=== PATIENT | male | born 2000 | race Caucasian/White ===

== ENCOUNTER 2020-08-16 10:13 | Emergency (ER) | payer OTHER ==
--- OUTSIDE RECORDS SUMMARY | 2020-08-16 10:20 | XMS REPORT | Continuity of Care Document ---
:2000 Author Organization [facility] t Address [address] [place] [place] [address] Care Team Providers Name Role Phone Pcp, Does Not Have A Primary Care Physician Richard Bro ZAPATA Attending Clinician Prakash CABANA ATTENDANT Attending Clinician Payers Payer Name Policy Type Policy Effective Date Expiration Date Sour ce Number CIGNACIGNA [id number] [id number] dical /2020-PresentO Branch /PPO/POS Problems This patient has no known problems. Allergies, Adverse Reactions, Alerts This patient has no known allergies or adverse reactions. Social History Social Habit Start Date Stop Date Quantity Comments Source Exposure to Not sure [facility] SARS-CoV-2 (event) Medica l Branch Tobacco use and 2020-06-09 2020-06-09 Never used [facility] exposure 00:00:00 00:00:00 [facility] Sex Assigned At [birth year] [facility] 00:00:00 00:00:00 [facility] Smoking Status Start Date Stop Date Source Current some day smoker 2020-06-09 00:00:00 [facility] Medications Ordered Filled Start Stop Current Ordering Indication Dosage Frequency Signature Comments Components Source Medication Medication Date Date Medication? Clinician (SIG) Name Name cephALEXin 2020- Yes Cystitis 500mg Take 1 Univers 500 mg 06-09 capsule by ity of capsule 00:00: 04:59 mouth 2 [place] 00 :00 (two) Medical times Branch daily for 7 days. Vital Signs Vital Name Observation Time Observation Value Comments Source Systolic blood 2020-06-09 23:22:00 111 mm[Hg] Univer sity of pressure [facility] Diastolic blood 2020-06-09 23:22:00 60 mm[Hg] Unive rsity of [facility] Heart rate 2020-06-09 23:22:00 71 /min Universi ty of [facility] Body temperature 2020-06-09 23:22:00 36.94 Lidya Univ ersity of [facility] Respiratory rate 2020-06-09 23:22:00 16 /min Univ ersity of [facility] Body height 2020-06-09 23:22:00 180.3 cm Universi ty of [facility] Body weight 2020-06-09 23:22:00 79.379 kg Universi ty of [facility] BMI 2020-06-09 23:22:00 24.41 kg/m2 Universi ty of [place] [facility] Oxygen saturation in 2020-06-09 23:22:00 97 /min University of Arterial blood by [facility] Pulse oximetry Branch Systolic blood 2020-06-09 23:22:00 111 mm[Hg] Univer sity of [facility] Diastolic blood 2020-06-09 23:22:00 60 mm[Hg] Unive rsity of [facility] Heart rate 2020-06-09 23:22:00 71 /min [facility]i ty [facility] [place] [facility] [place] Body temperature 2020-06-09 23:22:00 36.94 [facility] rate 2020-06-09 23:22:00 16 /min Univ ersity of [facility] Body height 2020-06-09 23:22:00 180.3 cm [facility] [place] [facility] Body weight 2020-06-09 23:22:00 79.379 kg [facility] [place] [facility] BMI 2020-06-09 23:22:00 24.41 kg/m2 [facility] [place] [facility] Oxygen saturation in 2020-06-09 23:22:00 97 /min University of Arterial blood by [facility] Pulse oximetry Branch Procedures Procedure Date / Time Performing Clinician Source Performed URINALYSIS MICROSCOPIC 2020-06-09 23:54:00 Yolette Rmaos iversity of [facility] POCT URINALYSIS 2020-06-09 23:28:00 Jeremias Reese o f [facility] Plan of Care Planned Activity Planned Date Details Comments Source Future Scheduled 2020-10-06 INFLUENZA VACCINE Univer sity of Test 00:00:00 (Season Ended) [code [place] [facility] edical = INFLUENZA VACCINE Branch (Season Ended)] Diagnostic Test 2020-06-09 GC & CHLAMYDIA Expected: [facility] 00:00:00 AMPLIFIED ASSAY 06/09/2020, [place] [facility] l [code = 89094-0] Expires: Branch 06/09/2021 Future Scheduled 2018-12-28 DTaP,Tdap,and Td Univers ity of Test 00:00:00 Vaccines (1 - Tdap) [place] [facility] dical [code = Branch DTaP,Tdap,and Td Vaccines (1 - Tdap)] Future Scheduled 2017-12-28 Hepatitis C University of Test 00:00:00 screening [place] [facility] (procedure) [code = Branch [id number]] Future Scheduled 2015 SARS-CoV-2 University of Test 00:00:00 (COVID-19) Vaccine [place] [facility] ical (1) [code = Branch SARS-CoV-2 (COVID-19) Vaccine (1)] Future Scheduled 2011 Depression screening Uni versity of Test 00:00:00 (procedure) [code = [place] [facility] dical 742608197] Branch Future Scheduled 2011 Well child visit Univers ity of Test 00:00:00 (procedure) [code = [place] [facility] [id number]] Branch Future Scheduled 2010-12-28 HPV VACCINES (1 - Univer sity of Test 00:00:00 Male 2-dose series) [place] [facility] dical [code = HPV VACCINES Branch (1 - Male 2-dose series)] Future Scheduled 2009-12-28 MENINGOCOCCAL B Universi ty of Test 00:00:00 VACCINES (1 of 2 - [place] [facility] ical Risk Bexsero 2-dose Branch series) [code = MENINGOCOCCAL B VACCINES (1 of 2 - Risk Bexsero 2-dose series)] Future Scheduled 2005-12-28 PNEUMOCOCCAL 0-64 Univer sity of Test 00:00:00 YEARS COMBINED [place] [facility] SERIES (1 of 1 - Branch PPSV23) [code = PNEUMOCOCCAL 0-64 YEARS COMBINED SERIES (1 of 1 - PPSV23)] Future Scheduled 2000-12-28 VARICELLA VACCINES Unive rsity of Test 00:00:00 (1 of 2 - 2-dose [place] [facility] al childhood series) Branch [code = VARICELLA VACCINES (1 of 2 - 2-dose childhood series)] Future Scheduled GC & CHLAMYDIA Universit y of Test AMPLIFIED ASSAY [place] [facility]ica l [code = 62848-6] Branch Future Scheduled URINE CULTURE [code Univ ersity of Test = 630-4] [facility] Encounters Start End Encounter Admission Attending Care Care Encounter Source Date/Time Date/Time Type Type Clinicians Facility Department ID 2020-06-09 2020-06-[address] [facility] [id number] 50 18:16:21 18:51:55 Care [facility] [id number] [place] [id number] Professio [id number] nal [address] One Results Test Description Test Time Test Comments Results Result Comments Source URINALYSIS MICROSCOPIC 2020-06-10 02:37:06 Test Item Value Reference Range Interpretation Comme nts RBC/HPF (test code = 0 See_Comment [Autom ated message] The system [id number]) which generated this result transmitted ref erence range: 0 - 3 HPF. The re ference range was not used to interpret this result as aleja l/abnormal. WBC/HPF (test code = 1 See_Comment [Autom ated message] The system [id number]) which generated this result transmitted ref erence range: 0 - 5 HPF. The re ference range was not used to interpret this result as aleja l/abnormal. BACTERIA (test code = Negative Negative [id number]) SQ EPITH (test code = <1 HPF [id number]) MUCOUS (test code = Slight Negative LPF A [id number]) Lab Interpretation (test code Abnormal = 97686-8) [facility] [id number] 23:29:00 Test Item Value Reference Range Interpretation Comments POCT U SP GRAV (test 1.025 mg/dl 1.005-1.025 code = 3255) POCT PH U (test code = 5 mg/dl 5-8 3254) POCT U LEUK EST (test trace Negative - code = 3263) Negative POCT U NIT (test code negative Negative - = 3262) Negative POCT U PROT (test code negative Negative - = 3259) Negative POCT U GLU (test code negative Negative - = 3256) Negative POCT U KETONE (test small Negative - code = 3258) Negative POCT U UROBILI (test normal 0.2-1 code = 3260) POCT U BILI (test code negative Negative - = 3261) Negative POCT U BLD (test code trace Negative - = 3257) Negative POCT U COLOR (test yellow code = 3266) POCT U APPEAR (test clear code = 3267) MARKOS (test code = MARKOS) accurate development and interpretation of all internal controls Lab Interpretation Abnormal (test code = 08086-3) [facility]
[2020-08-16 10:56] LABS: Absolute Lymphocytes (CBC) 1.8 K/uL (0.7-4.9); Basophils % 0.9 % (0-1.3); Hematocrit 46.4 % (39.6-49.0); Lymphocytes % 36.4 % (15.3-44.8); MPV 9.4 fL (7.6-11.3); RBC Red Blood Cell Count 5.49 M/uL (4.33-5.43)
--- NOTE | 2020-08-16 11:20 | RAD REPORT ---
EXAM DESCRIPTION: RAD - Chest Single View - 08/16/2020 10:54 am CLINICAL HISTORY: CHEST PAIN Chest pain. COMPARISON: No comparisons FINDINGS: Portable technique limits examination quality. The lungs are grossly clear. The heart is normal in size. No displaced fractures. IMPRESSION: No acute intrathoracic process suspected.
--- NOTE | 2020-08-16 11:20 | RAD REPORT ---
EXAM DESCRIPTION: CT - Chest For Pe Angio - 08/16/2020 11:00 am CLINICAL HISTORY: Chest pain. left chest pain, recent J J vaccine COMPARISON: Chest Single View dated 08/16/2020 TECHNIQUE: CT angiogram of the pulmonary arteries was performed with MIP. All CT scans are performed using dose optimization technique as appropriate and may include automated exposure control or mA/KV adjustment according to patient size. FINDINGS: No evidence of pulmonary thromboembolism. No acute aortic finding demonstrated. The lungs are clear. No significant pericardial or pleural fluid. No concerning bony finding. IMPRESSION: No evidence of pulmonary thromboembolism. No acute lung findings.
[2020-08-16 11:27] LABS: BUN Blood Urea Nitrogen 15 mg/dL (7-18); Bicarbonate 28 mmol/L (21-32); Glucose Level 89 mg/dL (74-106); Sodium Level 140 mmol/L (136-145); Troponin (Emerg Dept Use Only) < 0.02 ng/mL (0.0-0.045)
--- NOTE | 2020-08-16 11:51 | ER ---
Nurse's Notes [facility] Name: Lawrence Pelaez Age: 19 yrs Sex: Male : 2000 Arrival Date: 08/16/2020 Time: 10:19 Bed 13 Private MD: Diagnosis: Chest pain, unspecified;Shortness of breath;Gastro-esophageal reflux disease without esophagitis Presentation: 08/16 10:24 Chief complaint: Patient states: Had the Eulogio and Eulogio Covid Vaccine Sunday. ca1 Yesterday night, started having SOB. Today chest pain started around 0800. Denies HX of Asthma. Coronavirus screen: Client denies travel out of the [place] in the last 14 days. shortness of breath, Client presents with at least one sign or symptom that may indicate coronavirus-19. Standard/surgical mask placed on the client. Provider contacted for isolation considerations. Ebola Screen: Patient negative for fever greater than or equal to 101.5 degrees Fahrenheit, and additional compatible Ebola Virus Disease symptoms Patient denies exposure to infectious person. Patient denies travel to an Ebola-affected area in the 21 days before illness onset. No symptoms or risks identified at this time. Initial Sepsis Screen: Does the patient meet any 2 criteria? No. Patient's initial sepsis screen is negative. Does the patient have a suspected source of infection? No. Patient's initial sepsis screen is negative. Risk Assessment: Do you want to hurt yourself or someone else? Patient reports no desire to harm self or others. Onset of symptoms was August 15, 2020. 10:24 Method Of Arrival: Ambulatory ca1 10:24 Acuity: [place] 3 ca1 Historical: - Allergies: 10:26 No Known Allergies; ca1 - Home Meds: 10:26 None [Active]; ca1 - PMHx: 10:27 Anxiety; ca1 - PSHx: 10:26 None; ca1 - Immunization history:: Client reports receiving the 1st dose of the Covid vaccine, August 13, 2020 [employer]. - Social history:: Smoking status: Patient denies any tobacco usage or history of. - Family history:: not pertinent. - Hospitalizations: : No recent hospitalization is reported. Vital Signs: 10:24 BP 122 / 85; Pulse 62; Resp 18 S; Temp 97.7(TE); Pulse Ox 100% on R/A; Weight 81.65 kg ca1 (R); Height 5 ft. 11 in. (180.34 cm) (R); Pain 7/10; 10:24 Body Mass Index 25.10 (81.65 kg, 180.34 cm) ca1 ED Course: 10:19 Patient arrived in ED. mr 10:26 Triage completed. ca1 10:26 Arm band placed on right wrist. ca1 10:27 Neel Gresham MD is Attending Physician. rn 10:55 XRAY Chest (1 view) In Process Unspecified. EDMS 11:00 CT Chest For PE Angio In Process Unspecified. EDMS 11:00 Aida Conway, JEROME is Primary Nurse. tr6 11:01 Inserted saline lock: 18 gauge in right antecubital area, using aseptic technique. tr6 Blood collected. Administered Medications: 11:41 Drug: GI Cocktail without - (Maalox Suspension 30 ml, Lidocaine Liquid 2 % 15 tr6 ml) Route: PO; Outcome: 11:51 Discharge ordered by . rn 12:36 Patient left the ED. tr6 Signatures: Dispatcher [employer] Celina Arreaga mr Neel Gresham MD MD rn Acob, Rere RN RN ca1 Aida Conway, JEROME RN tr6 Corrections: (The following items were deleted from the chart) 10:27 10:26 PMHx: None; [facility] ca1
--- NOTE | 2020-08-16 11:51 | EDPHYS ---
Physician Documentation [facility] Name: Lawrence Pelaez Age: 19 yrs Sex: Male : 2000 Arrival Date: 08/16/2020 Time: 10:19 Bed 13 Private MD: ED Physician Neel Gresham HPI: 08/16 10:47 This 19 yrs old Male presents to ER via Ambulatory with complaints of rn Breathing Difficulty. 10:47 The patient or guardian reports chest pain that is located primarily in the anterior rn aspect of left upper chest. The pain radiates to Associated signs and symptoms: Pertinent positives: diaphoresis, shortness of breath, Pertinent negatives: abdominal pain, lower extremity swelling, near syncope, palpitations, syncope, vomiting. The chest pain is described as dull. Duration: The patient or guardian reports multiple episodes, that are intermittent. Modifying factors: The symptoms are alleviated by nothing. the symptoms are aggravated by deep breath. Severity of pain: At its worst the pain was mild in the emergency department the pain is unchanged. The patient has not experienced similar symptoms in the past. The patient has not recently seen a physician. Reports left sided chest pain, feels uneasy, assoc with sob. No fever. + chills. Reports just got J\\T\\J vaccine 3 days ago, no trauma. No hx of cardiac or lung problems. No drug use. Also has hx of acid reflux and had "a feast last night". Reports radiates into throat. No rash, no swelling.. Historical: - Allergies: 10:26 No Known Allergies; ca1 - Home Meds: 10:26 None [Active]; ca1 - PMHx: 10:27 Anxiety; ca1 - PSHx: 10:26 None; ca1 - Immunization history:: Client reports receiving the 1st dose of the Covid vaccine, August 13, 2020 [place]. - Social history:: Smoking status: Patient denies any tobacco usage or history of. - Family history:: not pertinent. - Hospitalizations: : No recent hospitalization is reported. ROS: 10:47 Constitutional: Negative for fever, and weight loss, Eyes: Negative for injury, pain, rn redness, and discharge, ENT: Negative for injury, pain, and discharge, Neck: Negative for injury, and swelling, Cardiovascular: Negative for palpitations, and edema, Respiratory: Negative for cough, wheezing, and pleuritic chest pain, Abdomen/GI: Negative for abdominal pain, nausea, vomiting, diarrhea, and constipation, Back: Negative for injury and pain, : Negative for injury, bleeding, discharge, and swelling, MS/Extremity: Negative for injury and deformity, Skin: Negative for injury, rash, and discoloration, Neuro: Negative for headache, weakness, numbness, tingling, and seizure. 10:51 All other systems are negative. rn Exam: 10:47 Constitutional: This is a well developed, well nourished patient who is awake, alert, rn no acute distress, seems anxious. Head/Face: Normocephalic, atraumatic. Eyes: Periorbital areas with no swelling, redness, or edema. ENT: No oral swelling or stridor Neck: Trachea midline, no masses palpated, and no cervical lymphadenopathy. Supple, full range of motion without nuchal rigidity, or vertebral point tenderness. No Meningismus. Cardiovascular: Regular rate and rhythm. No pulse deficits. Respiratory: No increased work of breathing, no retractions or nasal flaring. Abdomen/GI: soft, non-tender Skin: Warm, dry MS/ Extremity: Pulses equal, no cyanosis. Neurovascular intact. Full, normal range of motion. Equal circumference. Neuro: Awake and alert, GCS 15 11:48 ECG was reviewed by the Attending Physician. rn Vital Signs: 10:24 BP 122 / 85; Pulse 62; Resp 18 S; Temp 97.7(TE); Pulse Ox 100% on R/A; Weight 81.65 kg ca1 (R); Height 5 ft. 11 in. (180.34 cm) (R); Pain 7/10; 10:24 Body Mass Index 25.10 (81.65 kg, 180.34 cm) ca1 MDM: 10:27 Patient medically screened. rn 11:48 Differential diagnosis: acute pericarditis, anxiety, coronary artery disease rn costochondritis, esophagitis, gastritis, gastroesophageal reflux disease (GERD), pleurisy, pneumothorax, pulmonary embolus. Data reviewed: vital signs, nurses notes, lab test result(s), EKG, radiologic studies, CT scan, plain films, and as a result, I will discharge patient. Counseling: I had a detailed discussion with the patient and/or guardian regarding: the historical points, exam findings, and any diagnostic results supporting the discharge/admit diagnosis, lab results, radiology results, the need for outpatient follow up, to return to the emergency department if symptoms worsen or persist or if there are any questions or concerns that arise at home. Response to treatment: the patient's symptoms have mildly improved after treatment, and as a result, I will discharge patient. Special discussion: Based on the patient's history, exam, and Dx evaluation, there is no indication for emergent intervention or inpatient Tx. It is understood by the patient/guardian that if the Sx's persist or worsen they need to return immediately for re-evaluation. I discussed with the patient/guardian in detail that at this point there is no indication for admission to the hospital. It is understood, however, that if the symptoms persist or worsen the patient needs to return immediately for re-evaluation. ED course: No acute findings on blood/CXR/CT PE, will dc home with return precautions and some days off. Likely combination of vaccine reaction without PE or pericarditis, GERD, and anxiety.. 08/16 10:37 Order name: Basic Metabolic Panel; Complete Time: : rn 08/16 10:37 Order name: CBC with Diff; Complete Time: 11: rn 08/16 10:37 Order name: Troponin (emerg Dept Use Only); Complete Time: rn 08/16 10:37 Order name: XRAY Chest (1 view); Complete Time: : rn 08/16 10:37 Order name: CT Chest For PE Angio; Complete Time: : rn 08/16 11:14 Order name: CREATININE WHOLE BLOOD; Complete Time: 11:15 EDOH 08/16 10:37 Order name: EKG; Complete Time: 10:37 rn 08/16 10:37 Order name: Cardiac monitoring; Complete Time: 11:58 rn 08/16 10:37 Order name: EKG - Nurse/Tech; Complete Time: :58 rn 08/16 10:37 Order name: IV Saline Lock; Complete Time: : rn 08/16 10:37 Order name: Labs collected and sent; Complete Time: 11:00 rn 08/16 10:37 Order name: O2 Per Protocol; Complete Time: 11:08/16 10:37 Order name: O2 Sat Monitoring; Complete Time: 11:00 rn EC:48 Rate is 58 beats/min. Rhythm is regular. QRS [place] is Normal. NV interval is normal. QRS rn interval is normal. QT interval is normal. No Q waves. T waves are Normal. No ST changes noted. Clinical impression: Sinus bradycardia. Interpreted by me. Reviewed by me. Administered Medications: 11:41 Drug: GI Cocktail without - (Maalox Suspension 30 ml, Lidocaine Liquid 2 % 15 tr6 ml) Route: PO; Disposition Summary: 08/16/20 11:51 Discharge Ordered Location: Home rn Problem: new rn Symptoms: have improved rn Condition: Stable rn Diagnosis - Chest pain, unspecified rn - Shortness of breath rn - Gastro-esophageal reflux disease without esophagitis rn Followup: rn - With: Private Physician - When: As needed - Reason: Recheck today's complaints, Re-evaluation by your physician Discharge Instructions: - Discharge Summary Sheet rn - Nonspecific Chest Pain, Adult rn - Gastroesophageal Reflux Disease, Adult rn - Pain Without a Known Cause rn Forms: - Medication Reconciliation Form rn - Thank You Letter rn - Antibiotic product managent intern - Prescription Opioid Use rn - Work release form eb Signatures: Dispatcher [employer] EDMS Neel Gresham MD MD rn AcobRere RN RN ca1 Aida Conway RN RN tr6 Corrections: (The following items were deleted from the chart) 10:27 10:26 PMHx: None; ca1 ca1
[2020-08-16] MEDS ORDERED: MAGNES/ALUMIN/SIMET 30ML UCUP ONE (12:01)
[2020-08-16] MEDS ORDERED: LIDOCAINE VISCOUS 2% SOLN 15 ML UDC ONE (12:02)
[2020-08-16 12:41] VITALS: BP 122/85; TEMP 97.7; O2SAT 100
--- NOTE | 2020-08-16 16:04 | EKG ---
Test Date: 2020-08-16 Test Time: 11:47:28 Metrology Specialist: TTR MEASUREMENT RESULTS: Intervals: Rate: 58 NJ: 190 QRSD: 100 QT: 402 QTc: 394 [place]: P: 56 NJ: 190 QRS: 70 T: 58 INTERPRETIVE STATEMENTS: Sinus bradycardia with sinus arrhythmia Possible Lateral infarct, age undetermined Abnormal ECG No previous ECG available for comparison Electronically Signed On 08-16-20 16:03:31 CDT by Ari Flor
== END 2020-08-16 12:36 | disposition home or self-care (01) ==
LOC: ER 10:13
DX: K21.9 Gastro-esophageal reflux disease without esophagitis (principal); R06.02 Shortness of breath
CPT/HCPCS: 93005; 85025; 80048; 36415; 82565; 84484; 71275; 71045; 99284; Q9967

== ENCOUNTER 2021-09-15 15:41 | Emergency (ER) | payer OTHER ==
--- OUTSIDE RECORDS SUMMARY | 2021-09-15 16:00 | XMS REPORT | Continuity of Care Document ---
:2000 Author Organization [facility] t Address [facility] [place] [place] [address] Care Team Providers Name Role Phone PCP, PATIENT DOES NOT HAVE A Primary Care Physician Unavaila lc Nurse, Adi [facility] Attending Clinician Unavailable Kristina Lilly Attending Clinician KRISTINA ORYAL Attending Clinician Unavailable Yolette Jimenez Attending Clinician Jacqui Duke Attending Clinician JACQUI PEGUERO Attending Clinician Unavailable Payers Payer Name Policy Type Policy Number Effective Date Expiration Date S ource Problems Condition Condition Condition Status Onset Resolution Last Treating Co mments Source Name Details Category Date Date Treatment Clinician Date No known No known Disease Unive rs active active ity of problems problems [facility] Allergies, Adverse Reactions, Alerts Allergy Allergy Status Severity Reaction(s) Onset Inactive Treating Comm ents Source Name Type Date Date Clinician NO KNOWN Drug Active Univers ALLERGIE Class ity of [facility] Social History Social Habit Start Date Stop Date Quantity Comments Source Exposure to 2021-07-05 2021-07-15 Not sure [facility] SARS-CoV-2 (event) 00:00:00 18:43:00 Medica l Branch Tobacco use and 2020-06-09 2020-06-09 Never used Universit y [facility] exposure 00:00:00 00:00:00 Medical Branch Sex Ass[birth year] At [birth year] [facility] [place] 00:00:00 00:00:00 Medical Branch Smoking Status Start Date Stop Date Source Current some day smoker 2020-06-09 00:00:00 [facility] Medications Ordered Filled Start Stop Current Ordering Indication Dosage Frequency Signature Comments Components Source Medication Medication Date Date Medication? Clinician (SIG) Name Name No known No Univers medications 6-10 ity of 18:47: [place] 18 [facility] cephALEXin 2020- No Cystitis 500mg Take 1 Univers 500 mg 5-05 05-13 capsule by ity of capsule 00:00: 04:59 mouth 2 [place] 00 :00 (two) Medical times [place] daily for 7 days. cephALEXin No [id number] 500mg Take 1 Univers 500 mg 5-05 05-13 capsule by ity of capsule 00:00: 04:59 mouth 2 [place] 00 :00 (two) Medical times [place] daily for 7 days. Vital Signs Vital Name Observation Time Observation Value Comments Source Systolic blood 2021-07-15 23:44:00 100 mm[Hg] [facility] Diastolic blood 2021-07-15 23:44:00 62 mm[Hg] Unive [facility] Heart rate 2021-07-15 23:44:00 85 /min [facility] Body temperature 2021-07-15 23:44:00 36.94 Lidya [facility] Respiratory rate 2021-07-15 23:44:00 17 /min [facility] Body height 2021-07-15 23:44:00 182.9 cm [facility] Body weight 2021-07-15 23:44:00 76.913 kg [facility] BMI 2021-07-15 23:44:00 23.00 kg/m2 [facility] Oxygen saturation in 2021-07-15 23:44:00 98 /min [facility] Arterial blood by [facility] Pulse oximetry Branch Systolic blood 2020-06-09 23:22:00 111 mm[Hg] [facility] Diastolic blood 2020-06-09 23:22:00 60 mm[Hg] Unive rsity of pressure [place] [facility] Heart rate 2020-06-09 23:22:00 71 /min Universi ty of [place] [facility] Body temperature 2020-06-09 23:22:00 36.94 Lidya Univ ersity of [place] [facility] Respiratory rate 2020-06-09 23:22:00 16 /min Univ ersity of [place] [facility] Body height 2020-06-09 23:22:00 180.3 cm Universi ty of [place] [facility] Body weight 2020-06-09 23:22:00 79.379 kg Universi ty of [place] [facility] BMI 2020-06-09 23:22:00 24.41 kg/m2 Universi ty of [place] [facility] Oxygen saturation in 2020-06-09 23:22:00 97 /min University of Arterial blood by [place] [employer] [facility] Pulse oximetry Branch Systolic blood 2020-06-09 23:22:00 111 mm[Hg] Univer sity of pressure [place] [facility] Diastolic blood 2020-06-09 23:22:00 60 mm[Hg] Unive rsity of pressure [place] [facility] Heart rate 2020-06-09 23:22:00 71 /min Universi ty of [place] [facility] Body temperature 2020-06-09 23:22:00 36.94 Lidya Univ ersity of [place] [facility] Respiratory rate 2020-06-09 23:22:00 16 /min Univ ersity of [place] [facility] Body height 2020-06-09 23:22:00 180.3 cm Universi ty [facility] [place] [facility] Body weight 2020-06-09 23:22:00 79.379 kg Universi ty of [place] [facility] BMI 2020-06-09 23:22:00 24.41 kg/m2 Universi ty of [place] [facility] Oxygen saturation in 2020-06-09 23:22:00 97 /min University of Arterial blood by [place] [employer] joseph Pulse oximetry Branch Systolic blood 2020-06-09 23:22:00 111 mm[Hg] Univer sity of pressure [place] [facility] Diastolic blood 2020-06-09 23:22:00 60 mm[Hg] Unive rsity of pressure [place] [facility] Heart rate 2020-06-09 23:22:00 71 /min Universi ty of [place] [facility] Body temperature 2020-06-09 23:22:00 36.94 Lidya Univ ersity of [place] [facility] Respiratory rate 2020-06-09 23:22:00 16 /min Univ ersity of [place] [facility] Body height 2020-06-09 23:22:00 180.3 cm Universi ty of [place] [facility] Body weight 2020-06-09 23:22:00 79.379 kg Universi ty of [place] [facility] BMI 2020-06-09 23:22:00 24.41 kg/m2 Universi ty of [place] [facility] Oxygen saturation in 2020-06-09 23:22:00 97 /min University of Arterial blood by [facility] Pulse oximetry Branch Systolic blood 2020-06-09 23:22:00 111 mm[Hg] Univer sity of pressure [place] [facility] Diastolic blood 2020-06-09 23:22:00 60 mm[Hg] Unive rsity of pressure [place] [facility] Heart rate 2020-06-09 23:22:00 71 /min Universi ty of [place] [facility] Body temperature 2020-06-09 23:22:00 36.94 Lidya Univ ersity of [place] [facility] Respiratory rate 2020-06-09 23:22:00 16 /min Univ ersity of [place] [facility] Body height 2020-06-09 23:22:00 180.3 cm Universi ty of [place] [facility] Body weight 2020-06-09 23:22:00 79.379 kg Universi ty of [place] [facility] BMI 2020-06-09 23:22:00 24.41 kg/m2 Universi ty of [place] [facility] Oxygen saturation in 2020-06-09 23:22:00 97 /min University of Arterial blood by [facility] Pulse oximetry Branch Systolic blood 2020-06-09 23:22:00 111 mm[Hg] Univer sity of pressure [place] [facility] Diastolic blood 2020-06-09 23:22:00 60 mm[Hg] Unive rsity of pressure [place] [facility] Heart rate 2020-06-09 23:22:00 71 /min Universi ty of [place] [facility] Body temperature 2020-06-09 23:22:00 36.94 Lidya Univ ersity of [place] [facility] Respiratory rate 2020-06-09 23:22:00 16 /min Univ ersity of [place] [facility] Body height 2020-06-09 23:22:00 180.3 cm Universi ty of [place] [facility] Body weight 2020-06-09 23:22:00 79.379 kg Universi ty of [place] [facility] BMI 2020-06-09 23:22:00 24.41 kg/m2 Universi ty of [place] [facility] Oxygen saturation in 2020-06-09 23:22:00 97 /min University of Arterial blood by [facility] Pulse oximetry Branch Systolic blood 2020-06-09 23:22:00 111 mm[Hg] Univer sity of pressure [place] [facility] [place] Diastolic blood 2020-06-09 23:22:00 60 mm[Hg] Unive rsity of pressure [facility] Heart rate 2020-06-09 23:22:00 71 /min Universi ty of [place] Medical [place] Body temperature 2020-06-09 23:22:00 36.94 Lidya [facility] Respiratory rate 2020-06-09 23:22:00 16 /min [facility] Body height 2020-06-09 23:22:00 180.3 cm Universi ty of [place] [facility] Body weight 2020-06-09 23:22:00 79.379 kg Universi ty of [place] [facility] BMI 2020-06-09 23:22:00 24.41 kg/m2 Universi ty of [place] [facility] Oxygen saturation in 2020-06-09 23:22:00 97 /min University of Arterial blood by [facility] Pulse oximetry Branch Procedures Procedure Date / Time Performing Clinician Source Performed URINALYSIS MICROSCOPIC 2020-06-09 23:54:00 [facility] 2020-06-09 23:54:00 [facility] PO[facility]IS 2020-06-09 23:28:00 Jeremias Reese [facility] POCT URINALYSIS 2020-06-09 23:28:00 Jeremias Reese [facility] Plan of Care Planned Activity Planned Date Details Comments Source Future Scheduled 2020-10-06 INFLUENZA VACCINE Univer sity of Test 00:00:00 (Season Ended) [code [place] [facility] ed[facility] = INFLUENZA VACCINE Branch (Season Ended)] Diagnostic Test 2020-06-09 GC & CHLAMYDIA Expected: University of Pending 00:00:00 AMPLIFIED ASSAY 06/09/2020, [place] [facility] l [code = 66964-5] Expires: Branch 06/09/2021 Future Scheduled 2018-12-28 DTaP,Tdap,and Td Univers ity of Test 00:00:00 Vaccines (1 - Tdap) [place] [facility]ical [code = Branch DTaP,Tdap,and Td Vaccines (1 - Tdap)] Future Scheduled 2017-12-28 Hepatitis C University of Test 00:00:00 screening [place] Medical (procedure) [code = Branch 128383260] Future Scheduled 2015 SARS-CoV-2 University of Test 00:00:00 (COVID-19) Vaccine [place] [facility] (1) [code = Branch SARS-CoV-2 (COVID-19) Vaccine (1)] Future Scheduled 2011 Depression screening Uni versity of Test 00:00:00 (procedure) [code = [place] Me dical 082880253] Branch Future Scheduled 2011 Well child visit Univers ity of Test 00:00:00 (procedure) [code = [place] [facility] 916782394] Branch Future Scheduled 2010-12-28 HPV VACCINES (1 [...] AMPLIFIED ASSAY [place] [facility] [code = 84605-3] [place] Future Scheduled URINE CULTURE [code Univ ersity of Test = 630-4] [facility] Encounters Start End Encounter Admission Attending Care Care Encounter Source Date/Time Date/Time Type Type Clinicians Facility Department ID 2021-07-15 2021-07-15 Nurse Nurse, Adi Maciel [facility] [id number] Univers 18:35:00 18:55:00 Visit Kritsina Royal [id number] Apolinar as CAROLINE?BLEA [id number] Fl dical [address] MEDICAL OFFICE BUILDING 2021-07-15 2021-07-15 Outpatient R [facility] [id number] Univers 18:35:00 18:35:[id number] 2021-07-15 2021-07-[address] [facility] [id number] Univers 18:35:00 18:35:00 KRISTINA carolyn o f [facility] [place] [facility] 2020-06-09 2020-06-[address] [facility] [id number] 18:16:21 18:51:55 Care [facility] [id number] [place] [id number] Professio [id number] [address] One 2020-06-09 2020-06-09 [facility] [id number] Univers 18:16:21 18:51:55 [id number] [id number] Apolinar as Professio [id number] Fl dical [facility] [address] [place] [address] 2020-06-09 2020-06-09 [facility] [id number] Univers 18:00:00 18:00:00 [facility] Results Test Description Test Time Test Comments Results Result Comments Source URINALYSIS MICROSCOPIC 2020-06-10 02:37:06 Test Item Value Reference Range Interpretation Comme nts RBC/HPF (test code = 0 See_Comment [Autom ated message] The system [id number]) which generated this result transmitted ref erence range: 0 - 3 HPF. The re ference range was not used to interpret this result as laeja l/abnormal. WBC/HPF (test code = 1 See_Comment [Autom ated message] The system [id number]) which generated this result transmitted ref erence range: 0 - 5 HPF. The re ference range was not used to interpret this result as aleja l/abnormal. BACTERIA (test code = Negative Negative 1623795449) SQ EPITH (test code = <1 HPF 5087728059) MUCOUS (test code = Slight Negative LPF A 6456872344) Lab Interpretation (test code Abnormal = 45480-3) [facility] [id number] 02:37:06 Test Item Value Reference Range Interpretation Comments RBC/HPF (test code = See_Comment [Autom ated message] [id number]) The system official.fm generated this result transmitted ref erence range: 0 - 3 HP F. The reference range was not used to int erpret this result as normal/abnormal . WBC/HPF (test code = See_Comment [Autom ated message] [id number]) The system official[employer]fm generated this result transmitted ref erence range: 0 - 5 HP F. The reference range was not used to int erpret this result as normal/abnormal . BACTERIA (test code = Negative Negative 2328435563) SQ EPITH (test code = <1 HPF 8543978396) MUCOUS (test code = Slight Negative LPF A 5653190997) Lab Interpretation (test Abnormal code = 28623-8) [facility] W SPECIFIC [id number] 23:29:00 Test Item Value Reference Range Interpretation [...] controls Lab Interpretation Abnormal (test code = 60548-9) [facility] W SPECIFIC [id number] 23:29:00 Test Item Value Reference Range Interpretation [...] controls Lab Interpretation Abnormal (test code = 00801-1) [facility]
[2021-09-15 16:53] LABS: Urine Blood Negative (Negative); Urine Glucose Negative (Negative); Urine Protein Negative (Negative); Urine pH 6.5 (5.0-7.0)
--- NOTE | 2021-09-15 17:03 | RAD REPORT ---
EXAM DESCRIPTION: US - Scrotum Testicles - 09/15/2021 4:38 pm CLINICAL HISTORY: PAIN Testicular pain COMPARISON: No comparisons FINDINGS: The right testicle 3.6 x 3.2 x 2.0 cm. No intratesticular masses or evidence of testicular torsion. The left testicle 4.0 x 2.6 x 2.2 cm. No intratesticular masses or evidence of testicular torsion. Both epididymides are normal in size and appearance. No pathologic fluid collections. IMPRESSION: Unremarkable study.
--- NOTE | 2021-09-15 17:09 | EDPHYS ---
Physician Documentation [facility] Name: Lawrence Pelaez Age: 20 yrs Sex: Male : 2000 Arrival Date: 09/15/2021 Time: 15:42 Bed 15 Private MD: ED Physician Cheo Almonte HPI: 09/15 17:09 This 20 yrs old Male presents to ER via Ambulatory with complaints of Groin Pain. ms3 17:09 The patient presents with Penis swelling and pain. Onset: The symptoms/episode ms3 began/occurred 2 day(s) ago. Modifying factors: The symptoms are alleviated by nothing, the symptoms are aggravated by nothing. Associated signs and symptoms: The patient has no apparent associated signs or symptoms. Severity of symptoms: At their worst the symptoms were moderate, in the emergency department the symptoms are unchanged. The patient has been recently seen by a physician: Macie CANCHOLA. Historical: - Allergies: 16:38 No Known Allergies; bm7 - Home Meds: 16:38 None [Active]; bm7 - PMHx: 16:38 Anxiety; bm7 - PSHx: 16:38 None; bm7 - Immunization history:: Adult Immunizations up to date. - Social history:: Smoking status: Reported history of juuling and/or vaping. ROS: 17:09 Constitutional: Negative for fever, and chills. Neck: Negative for injury, pain, and ms3 swelling, Cardiovascular: Negative for chest pain, and palpitations. Respiratory: Negative for shortness of breath, cough, wheezing, and pleuritic chest pain, Abdomen/GI: Negative for abdominal pain, nausea, vomiting, diarrhea, and constipation. 17:09 : Positive for penile pain. 17:09 All other systems are negative. Exam: 17:09 Constitutional: This is a well developed, well nourished patient who is awake, alert, ms3 and in no acute distress. Head/Face: Normocephalic, atraumatic. Chest/axilla: Normal chest wall appearance and motion. Nontender with no deformity. Cardiovascular: Regular rate and rhythm with a normal S1 and S2. No gallops, murmurs, or rubs. Normal PMI, no JVD. No pulse deficits. Respiratory: Lungs have equal breath sounds bilaterally, clear to auscultation and percussion. No rales, rhonchi or wheezes noted. No increased work of breathing, no retractions or nasal flaring. Abdomen/GI: Soft, non-tender, with normal bowel sounds. No distension or tympany. No guarding or rebound. No evidence of tenderness throughout. Skin: Warm, dry with normal turgor. Normal color with no rashes, no lesions, and no evidence of cellulitis. Psych: Awake, alert, with orientation to person, place and time. Behavior, mood, and affect are within normal limits. 17:09 : Male external genitalia: Patient is not circumisioned. erythema, of the shaft of penis is seen, that is moderate. Vital Signs: 16:08 BP 114 / 65; Pulse 84; Resp 16; Temp 98.2; Pulse Ox 99% on R/A; iw 17:11 BP 114 / 68; Pulse 76; Resp 16; Pulse Ox 99% on R/A; em6 MDM: 17:07 Patient medically screened. ms3 17:09 Data reviewed: vital signs, nurses notes, and as a result, I will discharge patient. ms3 09/15 16:53 Order name: Urine Dipstick-Ancillary; Complete Time: 17:05 EDMS 09/15 15:55 Order name: US Scrotum Testicles; Complete Time: 17:05 snw Administered Medications: No medications were administered Disposition Summary: 09/15/21 17:09 Discharge Ordered Location: Home ms3 Condition: Stable ms3 Diagnosis - Cellulitis of corpus cavernosum and penis ms3 Followup: ms3 - With: Boston Ledbetter MD - When: 2 - 3 days - Reason: Recheck today's complaints Discharge Instructions: - Discharge Summary Sheet ms3 - Cellulitis, Adult ms3 Forms: - Medication Reconciliation Form ms3 - Thank You Letter ms3 - Antibiotic Education ms3 - Prescription Opioid Use ms3 Prescriptions: - Doxycycline Hyclate 100 mg Oral Tablet - take 1 tablet by ORAL route every 12 hours; 20 tablet; Refills: 0, Product ms3 Selection Permitted Signatures: Dispatcher [employer] EDUT Cheo Almonte DO DO ms3 Kristina Steiner, RN RN bm7
--- NOTE | 2021-09-15 17:09 | ER ---
Nurse's Notes [facility] Name: Lawrence Pelaez Age: 20 yrs Sex: Male : 2000 Arrival Date: 09/15/2021 Time: 15:42 Bed 15 Private MD: Diagnosis: Cellulitis of corpus cavernosum and penis Presentation: 09/15 16:31 Chief complaint:. iw 16:36 Chief complaint: Patient states: My whole penis is swollen and it got really bad last bm7 night, I went to to [facility] last night and they gave me antibiotics and said it was infection. l had two IV antibiotics IV and by mouth and it didn't hurt at all. Coronavirus screen: At this time, the client does not indicate any symptoms associated with coronavirus-19. Ebola Screen: No symptoms or risks identified at this time. Initial Sepsis Screen: Does the patient meet any 2 criteria? No. Patient's initial sepsis screen is negative. Does the patient have a suspected source of infection? No. Patient's initial sepsis screen is negative. Risk Assessment: Do you want to hurt yourself or someone else? Patient reports no desire to harm self or others. Onset of symptoms was October 15, 2021. Care prior to arrival: went to [facility] \\T\\3AM. 16:36 Method Of Arrival: Ambulatory bm7 16:36 Acuity: [place] 3 bm7 Triage Assessment: 16:38 General: Appears in no apparent distress. uncomfortable, Behavior is calm, cooperative, bm7 appropriate for age. Pain: Complains of pain in groin Pain does not radiate. Pain currently is 10 out of 10 on a pain scale. EENT: No deficits noted. No signs and/or symptoms were reported regarding the EENT system. Neuro: No deficits noted. Cardiovascular: No deficits noted. Respiratory: No deficits noted. GI: No deficits noted. No signs and/or symptoms were reported involving the gastrointestinal system. : Reports burning with urination, inability to void, urgency, urinary frequency, Denies discharge, Patient is sexually active. : Swelling noted on penis pt states when he pulled back his foreskin this morning he noticed "bumps". Derm: No deficits noted. No signs and/or symptoms reported regarding the dermatologic system. Musculoskeletal: No deficits noted. No signs and/or symptoms reported regarding the musculoskeletal system. 16:38 : Reports after having sex yesterday the pain became worse. bm7 Historical: - Allergies: 16:38 No Known Allergies; bm7 - Home Meds: 16:38 None [Active]; bm7 - PMHx: 16:38 Anxiety; bm7 - PSHx: 16:38 None; bm7 - Immunization history:: Adult Immunizations up to date. - Social history:: Smoking status: Reported history of juuling and/or vaping. Screenin:11 Abuse screen: Denies threats or abuse. Nutritional screening: No deficits noted. em6 Tuberculosis screening: No symptoms or risk factors identified. Fall Risk No fall in past 12 months (0 pts). No secondary diagnosis (0 pts). No IV (0 pts). Ambulatory Aid- None/Bed Rest/Nurse Assist (0 pts). Gait- Normal/Bed Rest/Wheelchair (0 pts) Mental Status- Oriented to own ability (0 pts). Total Chambers Fall Scale indicates No Risk (0-24 pts). Assessment: 16:08 Reassessment: pt told test technician that he did not want to speak to anyone but the doctor. iw 16:32 Reassessment: pt not in lobby. iw 16:32 Reassessment: pt did not answer cell phone number on file. iw 17:07 General: Appears in no apparent distress. comfortable, Behavior is calm, cooperative. em6 Pain: Complains of pain in groin Pain does not radiate. Neuro: Naik Agitation-Sedation Scale (RASS): 0 - Alert and Calm Level of Consciousness is awake, alert, obeys commands, Oriented to person, place, time, situation. Cardiovascular: Heart tones present Capillary refill < 3 seconds Patient's skin is warm and dry. Respiratory: Airway is patent Respiratory effort is even, unlabored, Respiratory pattern is regular, symmetrical, Breath sounds are clear bilaterally. GI: No signs and/or symptoms were reported involving the gastrointestinal system. : Reports burning with urination, pain genital. EENT: No signs and/or symptoms were reported regarding the EENT system. Derm: No signs and/or symptoms reported regarding the dermatologic system. Musculoskeletal: Circulation, motion, and sensation intact. Vital Signs: 16:08 BP 114 / 65; Pulse 84; Resp 16; Temp 98.2; Pulse Ox 99% on R/A; iw 17:11 BP 114 / 68; Pulse 76; Resp 16; Pulse Ox 99% on R/A; em6 ED Course: 15:42 Patient arrived in ED. as 16:37 Cheo Olivares DO is Attending Physician. ms3 16:38 Triage completed. bm7 16:38 Arm band placed on right wrist. bm7 16:40 US Scrotum Testicles In Process Unspecified. EDMS 16:40 Patient has correct armband on for positive identification. Bed in low position. Call em6 light in reach. Adult w/ patient. Pulse ox on. NIBP on. 17:08 Boston Ledbetter MD is Referral Physician. ms3 17:14 was in the room with dr olivares for genital exam. Patient did not have IV access during em6 this emergency room visit. Administered Medications: No medications were administered Medication: 16:40 VIS not applicable for this client. em6 Outcome: 17:09 Discharge ordered by . ms3 17:21 Discharged to home ambulatory, with family. em6 17:21 Condition: stable 17:21 Discharge instructions given to patient, family, Instructed on discharge instructions, follow up and referral plans. medication usage, Demonstrated understanding of instructions, follow-up care, medications, Prescriptions given X 1. 17:22 Patient left the ED. em6 Signatures: Dispatcher [employer] Li Thayer Irene, RN JEROME Cheo Olivares DO DO ms3 Kristina Steiner, JEROME CANO bm7 Hyun Harrison RN RN em6
[2021-09-15 18:57] VITALS: TEMP 98.2; O2SAT 99
[2021-09-15 19:09] VITALS: BP 114/68
== END 2021-09-15 17:22 | disposition home or self-care (01) ==
LOC: ER 15:41
DX: N48.22 Cellulitis of corpus cavernosum and penis (principal)
CPT/HCPCS: 76870; 81003; 99283